=== PATIENT | male | born 1970 | race Hispanic/Latino ===

== ENCOUNTER 2018-07-07 07:55 | Outpatient (CLI) | payer BC ==
--- NOTE | 2018-07-07 08:33 | CT ---
CT abdomen and pelvis with IV contrast. Oral contrast was administered. INDICATIONS: Rectal pain. Blood in stool. Abdominal pain with nausea. COMPARISON: 11/13/2015 FINDINGS: Lung bases are clear Liver, spleen, and pancreas appear unremarkable. Stomach and duodenum appear unremarkable. Adrenal glands appear normal. Kidneys appear unremarkable. Collecting structures and urinary bladder appear unremarkable. Small bowel loops are normal caliber and exhibit normal fold pattern. Patient is status post appendectomy Colon is unremarkable. Rectum is abnormal. There is mural thickening. There is an air-fluid collection in the rectal wall to the left of midline measuring up to 3 cm AP dimension consistent with perirectal abscess. Aorta is normal caliber. Nonspecific para-aortic lymph nodes. Pelvic structures appear unremarkable. Subcutaneous tissues, abdominal wall, and muscular structures appear unremarkable. Osseous structures appear unremarkable. IMPRESSION: Inflammatory changes involving the rectum with mural thickening and evidence of perirectal abscess on the left.
== END 2018-07-07 07:56 | disposition home or self-care (01) ==
LOC: CT 07:55
PROVIDERS: ATTEND Family Medicine
DX: K62.89 Other specified diseases of anus and rectum (principal); R19.4 Change in bowel habit; R19.5 Other fecal abnormalities; K61.1 Rectal abscess
CPT/HCPCS: 74177

== ENCOUNTER 2018-07-22 05:52 | Day surgery (SDC) | payer BC ==
[2018-07-21 10:35] VITALS: BMI 29.2
[2018-07-22] MEDS ORDERED: Fentanyl 100 MCG/2 ML VIAL ONE ×2 (06:40→09:32)
[2018-07-22] MEDS ORDERED: Lidocaine 2% PF 5 ML VIAL ONE (06:46)
[2018-07-22] MEDS ORDERED: Bupivacaine/Epinephrine 0.25% 30 ML VIAL ONE (06:46)
[2018-07-22] MEDS ORDERED: PROPOFOL 20 ML ONE (07:52)
[2018-07-22] MEDS ORDERED: Propofol 500 MG/50 ML VIAL ONE (07:52)
--- NOTE | 2018-07-22 08:53 | RAD ---
Chest AP view INDICATION: Postop COMPARISON: [id number] FINDINGS: Lungs:There is suspected area of subsegmental volume loss within the left midlung and left lower lobe . Cardiac silhouette pulmonary vasculature:The cardiomediastinal silhouette appears within normal limit s. Pleural spaces:No pleural effusion or pneumothorax is demonstrated. Upper abdomen:No abnormality seen. Osseous structures: No acute osseous abnormality. Additional findings:There is a new right IJ chest wall port. IMPRESSION: New right IJ chest wall port without evidence of pneumothorax. Subsegmental volume loss w ithin the left midlung and left lower lobe.
[2018-07-22] MEDS ORDERED: HYDROcodone/Acetaminophen 5/325 mg Tablet ONE (10:30)
[2018-07-22] MEDS ORDERED: Dexamethasone 20 MG/5 ML VIAL ONE (15:17)
[2018-07-22] MEDS ORDERED: Lidocaine 1% PF 5 ML VIAL ONE (15:17)
[2018-07-22] MEDS ORDERED: PROPOFOL 200 MG/20 ML VIAL ONE (15:17)
[2018-07-22] MEDS ORDERED: Ondansetron PF 4 MG/2 ML Vial ONE (15:17)
--- NOTE | 2018-07-23 15:06 | OP ---
DATE OF PROCEDURE: 07/22/2018 PREOPERATIVE DIAGNOSIS: Rectal mass, likely malignancy. POSTOPERATIVE DIAGNOSIS: Rectal mass, likely malignancy. PROCEDURES PERFORMED: 1. Biopsy of rectal mass, transanal approach. 2. Tunnelled central line with subcutaneous port (MediPort CT injectable). ANESTHESIA: General. ESTIMATED BLOOD LOSS: Minimal. COMPLICATIONS: None. SPECIMEN: Rectal mass biopsy. DESCRIPTION OF PROCEDURE: The patient was taken to the operating room and laid supine on the operating room table. After general anesthetic was obtained, bilateral neck and chest was shaved, prepped, and draped in a sterile fashion. Local anesthetic infiltrated over the right internal jugular vein. Internal jugular vein was cannulated using a 22-gauge finder needle followed by a Seldinger needle. Wire was passed into superior vena cava under fluoro guidance. A 3 cm incision was made below the right clavicle and a subcutaneous pocket was made below the lower incision. Tubing for the MediPort tunnelled from the inferior to the superior incision and suture sheath was placed over the wire into the superior vena cava under fluoro guidance. The dilator and wire were removed and the catheter sewed into the sheath. The sheath was peeled away. The tip of the catheter was at the atriocaval junction. MediPort tubing cut to fit the MediPort with lower incision, connected to the MediPort, sewn to the chest wall in the subcutaneous pocket using Prolene. The MediPort flushes and draws blood without difficulty. It was flushed with a heparin flush. The wounds were all irrigated and closed using 3-0 Vicryl, 4-0 Monocryl, and Dermabond. Next, the patient was placed in lithotomy position and his perianal area was prepped and draped and using finger palpation of this mid rectal mass, biopsy was performed using a grasping device. Large piece of the mass was taken. There was no significant bleeding. The anal vault was packed using Gelfoam. The patient was sent to Recovery in stable condition. All instrument counts, needle counts, lap counts were correct. Job ID: [id number]
== END 2018-07-22 11:15 | disposition home or self-care (01) ==
LOC: SDC 05:52
PROVIDERS: ATTEND Surgery
PROC: 05HM33Z Insertion of Infusion Device into Right Internal Jugular Vein, Percutaneous Approach (ICD-10-PCS; principal; 2018-07-22)
PROC: 0DBP7ZX Excision of Rectum, Via Natural or Artificial Opening, Diagnostic (ICD-10-PCS; principal; 2018-07-22)
DX: C20 Malignant neoplasm of rectum (principal); G43.909 Migraine, unspecified, not intractable, without status migrainosus; Z90.89 Acquired absence of other organs; Z79.899 Other long term (current) drug therapy
CPT/HCPCS: 71045; 88305; C1788; J0690; J1100; J1642; J2001; J2405; J2704; J3010

== ENCOUNTER 2018-08-03 09:20 | Outpatient (CLI) | payer BC ==
--- NOTE | 2018-08-03 12:02 | MRI ---
MRI Pelvis W WO Con History: Rectal cancer Comparison: None. Findings: 7 cm from the anal verge is a circumferential necrotic mass rectum with central necrosis. T he mass abuts the internal sphincter without definite invasion. Mass invades through the submucosa, muscularis propria, and perirectal tissue. There is penetration into the right pelvic sidewall throug h the mesorectal fascia from 7:00-9:00. Mass has a craniocaudal length of 7.5 cm. Multiple abnormal presacral lymph nodes measuring up to 1 cm in short axis. Abnormal lymphovascular e nhancement posteriorly within the mesorectal fascia. No definite bladder wall invasion or prostate invasion. The urinary bladder is unremarkable. No external iliac adenopathy. No penetration within the peritoneal reflection. Impression: 1. T4a rectal cancer 7 cm from the anal verge which is circumferential with central necrosis. There a re numerous lymph nodes within the mesorectal fascia as well as the presacral orquidea chain. Mass extends through the serosa into the right pelvic sidewall. Mass abuts but does not clearly not invade the internal sphincter. 2. Positive posterior lymphovascular invasion. 3. No evidence for osseous metastasis. 4. Mesorectal fascial and superior rectal orquidea chain metastasis.
== END 2018-08-03 09:21 | disposition home or self-care (01) ==
LOC: TBSIIMAG 09:20
PROVIDERS: ATTEND Radiology Radiation Oncology
DX: C20 Malignant neoplasm of rectum (principal)
CPT/HCPCS: 72197

== ENCOUNTER 2018-11-08 07:54 | Outpatient (CLI) | payer BC ==
[2018-11-08 10:43] LABS: #Lymphocytes 0.8 thou/uL (1.20-3.40); #Monocytes 0.4 thou/uL (0.11-0.59); #Neutrophils 2.5 thou/uL (1.40-6.50); %Basophils 0.3 % (0.0-1.0); %Eosinophils 1.3 % (0.0-10.0); %Lymphocytes 21.4 % (21.0-51.0); %Monocytes 9.6 % (0.0-10.0); %Neutrophils 67.4 % (42.0-75.0); Hemoglobin 13.1 g/dL (14.0-18.0); Mean Corpuscular HGB CONC 34.5 g/dL (32.0-36.0); Mean Corpuscular Hemoglobin 29.7 pg (27.0-31.0); Mean Corpuscular Volume 86.1 fL (78.0-98.0); Mean Platelet Volume 7.7 fL (7.4-10.4); Platelet Count 261 thou/uL (130-400); RBC Distribution Width 14.8 % (11.5-14.5); White Blood Cell (WBC) Count 3.7 thou/uL (4.8-10.8)
[2018-11-08 10:51] LABS: Hemoglobin A1c 5.5 % (4.0-6.0)
[2018-11-08 11:08] LABS: ALT (SGPT) 15 U/L (8-55); AST (SGOT) 14 U/L (5-34); Albumin 4.2 g/dL (3.5-5.0); Alkaline Phosphatase 79 U/L (40-150); Anion Gap 12 mmol/L (10-20); BUN (Urea Nitrogen) 14 mg/dL (8.9-20.6); Bilirubin, Total 0.3 mg/dL (0.2-1.2); Calc. Creatinine Clearance 0 mL/min (70-130); Calcium 8.9 mg/dL (7.8-10.44); Carbon Dioxide 23 mmol/L (22-29); Chloride 104 mmol/L (98-107); Estimated GFR-MDRD Greater than 90; Globulin 3.4 g/dL (2.4-3.5); Glucose 100 mg/dL (70-105); Potassium 3.9 mmol/L (3.5-5.1); Protein, Total 7.6 g/dL (6.0-8.3); Sodium 135 mmol/L (136-145)
== END 2018-11-08 07:55 | disposition home or self-care (01) ==
LOC: LABBT 07:54
PROVIDERS: ATTEND Surgery
DX: Z01.812 Encounter for preprocedural laboratory examination (principal); C20 Malignant neoplasm of rectum
CPT/HCPCS: 80053; 83036; 85025

== ENCOUNTER 2018-11-08 08:45 | Inpatient (IN) | payer BC ==
[2018-11-11] MEDS: Acetaminophen 1,000 MG in Premix Bag 1 BAG IVPB SCH ×2 (00:50→17:50)
[2018-11-11] MEDS ORDERED: Fentanyl 100 MCG/2 ML VIAL ONE ×5 (06:28→13:23)
[2018-11-11] MEDS ORDERED: Midazolam HCl 2 mg/2 ml Vial ONE (06:28)
[2018-11-11] MEDS ORDERED: Sodium Chloride 0.9% 100 ML ONE (06:37)
[2018-11-11] MEDS ORDERED: cefOXitin 2 GM VIAL ONE ×3 (06:37→11:37)
[2018-11-11] MEDS ORDERED: Ondansetron HCl/PF 4 MG/2 ML Vial IVP PRN (06:58)
[2018-11-11] MEDS ORDERED: Promethazine HCl 25 MG/ML VIAL SLOW IVP PRN (06:58)
[2018-11-11] MEDS ORDERED: Promethazine HCl 25 MG/ML VIAL IM PRN (06:58)
[2018-11-11] MEDS ORDERED: Succinylcholine Chloride 20 MG/ML 10 ml SYRINGE FS ONE (09:38)
[2018-11-11] MEDS ORDERED: Rocuronium Bromide 50 MG/5 ML VIAL ONE (09:40)
[2018-11-11] MEDS ORDERED: Bupivacaine HCl 0.5%/Epinephrine 1:200,000/PF 30 ml Vial ONE (11:14)
[2018-11-11] MEDS ORDERED: Dexamethasone 20 MG/5 ML VIAL ONE (12:17)
[2018-11-11] MEDS ORDERED: Ketorolac Tromethamine 30 MG/ML VIAL ONE (12:17)
[2018-11-11] MEDS ORDERED: Glycopyrrolate 0.2 MG/ML 5 ML SYRINGE ONE (12:17)
[2018-11-11] MEDS ORDERED: PROPOFOL 200 MG/20 ML VIAL ONE (12:17)
[2018-11-11] MEDS ORDERED: Rocuronium Bromide 10 MG/ML (10ML VIAL) ONE (12:17)
[2018-11-11] MEDS ORDERED: Ondansetron PF 4 MG/2 ML Vial ONE (12:17)
[2018-11-11] MEDS ORDERED: hydrALAZINE 20 MG/ML VIAL SLOW IVP PRN (13:38)
[2018-11-11] MEDS ORDERED: Fentanyl 100 MCG/2 ML VIAL SLOW IVP PRN (13:38)
[2018-11-11] MEDS: D5 1/2 NS w/20 mEq KCL 1,000 ML IV SCH ×2 (14:18→20:31)
[2018-11-11] MEDS: Ketorolac Tromethamine 30 MG/ML VIAL IVP PRN ×2 (14:18→20:26)
[2018-11-11] MEDS: Ondansetron PF 4 MG/2 ML Vial IVP PRN (16:46)
[2018-11-11] MEDS: cefOXitin 2 GM in Sodium Chloride 0.9% 100 ML IVPB SCH (20:00)
[2018-11-11] MEDS: Famotidine/PF 20 mg/2ml Vial SLOW IVP SCH (20:26)
[2018-11-11] MEDS: Famotidine 20 MG TAB PO SCH (20:31)
[2018-11-12] MEDS: Ketorolac Tromethamine 30 MG/ML VIAL IVP PRN ×4 (03:27→23:21)
[2018-11-12] MEDS: cefOXitin 2 GM in Sodium Chloride 0.9% 100 ML IVPB SCH (03:27)
[2018-11-12] MEDS: Acetaminophen 1,000 MG in Premix Bag 1 BAG IVPB SCH ×2 (05:38→12:47)
[2018-11-12 05:48] LABS: #Lymphocytes 0.7 thou/uL (1.20-3.40); #Monocytes 0.6 thou/uL (0.11-0.59); #Neutrophils 4.1 thou/uL (1.40-6.50); %Basophils 0.1 % (0.0-1.0); %Eosinophils 0.1 % (0.0-10.0); %Lymphocytes 13.7 % (21.0-51.0); %Monocytes 10.3 % (0.0-10.0); %Neutrophils 75.8 % (42.0-75.0); Mean Corpuscular HGB CONC 34.3 g/dL (32.0-36.0); Mean Corpuscular Hemoglobin 30.1 pg (27.0-31.0); Mean Corpuscular Volume 87.8 fL (78.0-98.0); Mean Platelet Volume 7.4 fL (7.4-10.4); Platelet Count 243 thou/uL (130-400); RBC Distribution Width 14.2 % (11.5-14.5); Red Blood Cell (RBC) Count 3.65 mill/uL (4.70-6.10); White Blood Cell (WBC) Count 5.4 thou/uL (4.8-10.8)
[2018-11-12 06:00] LABS: Anion Gap 9 mmol/L (10-20); BUN (Urea Nitrogen) 10 mg/dL (8.9-20.6); Calc. Creatinine Clearance 127 mL/min (70-130); Carbon Dioxide 24 mmol/L (22-29); Chloride 105 mmol/L (98-107); Estimated GFR-MDRD Greater than 90; Glucose 105 mg/dL (70-105); Potassium 3.5 mmol/L (3.5-5.1); Sodium 134 mmol/L (136-145)
--- NOTE | 2018-11-12 06:51 | PDOC.GSPN ---
Surgery Progress Note: Subj - Subjective Patient reports: no new complaints, feels better, pain well controlled (pt states pain is 7/10, decreasing to 6/10 with IV tylenol and Ketorolac. the pain is mostly soreness around the sites of incision, and pt states comfortability with the current level of control.), tolerating liquids well (Has tolerated jello and clear broth well. Feels hungry and ready to advance diet.), voiding w/ o difficulty (Mojica present), nausea (3x yesterday evening- none overnight or today.), vomiting (1x yesterday evening after ambulating. None last night or today.) Narrative: Pt is s/p low anterior resection with diverting ileostomy post op day 1. Pt endorses uncomfortability yesterday evening, feeling overheated and sweaty in the room. However, overnight he did well, and has no new complaints this morning. He ambulated yesterday evening and will ambulate again this a.m. Surgery Progress Note: Obj - Vital signs Vital signs: Vital Signs - Most Recent Temp Pulse Resp BP Pulse Ox 98.5 F 79 18 109/65 97 11/12/18 03:41 11/12/18 03:41 11/12/18 03:41 11/12/18 03:41 11/12/18 03:41 - Physical Exam General: no distress, well developed, well nourished Cardiovascular: regular rate and rhythm Respiratory: clear to auscultation, normal expansion, normal respiratory effort , breath sounds present Abdomen: soft, nondistended, positive bowel sounds, appropriately tender Psychiatric: oriented to time, oriented to person, oriented to place Wound: dressing clean,dry,intact, healing well, ostomy/colostomy (Fecal matter present in ileostomy bag) Surgery Progress Note: Results - Labs Result Diagrams: 11/12/18 04:55 11/12/18 04:55 Lab results: Laboratory Results - last 24 hr 11/12/18 11/12/18 04:55 04:55 WBC 5.4 RBC 3.65 L Hgb 11.0 L Hct 32.0 L MCV 87.8 MCH 30.1 MCHC 34.3 RDW 14.2 Plt Count 243 MPV 7.4 Neutrophils % 75.8 H Lymphocytes % 13.7 L Monocytes % 10.3 H Eosinophils % 0.1 Basophils % 0.1 Neutrophils # 4.1 Lymphocytes # 0.7 L Monocytes # 0.6 H Eosinophils # 0.0 Basophils # 0.0 Sodium 134 L Potassium 3.5 Chloride 105 Carbon Dioxide 24 Anion Gap 9 L BUN 10 Creatinine 0.87 Estimated GFR (MDRD) Greater than 90 Glucose 105 Calcium 8.0 Surgery Progress Note: A/P - Problem (1) Rectal cancer Current Visit: Yes Code(s): C20 - MALIGNANT NEOPLASM OF RECTUM Status: Acute - Plan Plan: Pt did well overnight. Remained afebrile with nl WBC ct. Appears well his a.m. and tolerating clear liquid diet. Plata is 6/10 and pt states that is adequate control for him. No new complaints. Plan: -Advance to full liquid diet today -Consider mojica removal in next 24 hours -OOB/Ambulate as much as tolerated Addendum - Physician - Physician Attestation Date/Time: 11/12/18 [id number] I personally performed or re-performed the physical examination and medical decision making. I have verified all student documentation or findings, including history, physical exam and/or medical decision making. Doing well. Advance to full liquids
[2018-11-12] MEDS: Famotidine/PF 20 mg/2ml Vial SLOW IVP SCH ×2 (07:55→20:56)
[2018-11-12] MEDS: Famotidine 20 MG TAB PO SCH ×2 (09:37→20:56)
[2018-11-12] MEDS ORDERED: D5 1/2 NS w/20 mEq KCL 1,000 ML IV SCH (11:33)
[2018-11-12] MEDS ORDERED: traMADol HCl 50 MG TAB PO PRN (11:33)
[2018-11-12] MEDS: Enoxaparin Sodium 40 MG/0.4 ML SYRINGE SC SCH (20:56)
[2018-11-13] MEDS: Fentanyl 100 MCG/2 ML VIAL SLOW IVP PRN ×2 (01:45→08:25)
[2018-11-13] MEDS: Ondansetron PF 4 MG/2 ML Vial IVP PRN ×3 (04:28→19:12)
[2018-11-13] MEDS: Ketorolac Tromethamine 30 MG/ML VIAL IVP PRN ×3 (05:45→22:49)
[2018-11-13] MEDS: Famotidine/PF 20 mg/2ml Vial SLOW IVP SCH ×2 (08:18→21:05)
[2018-11-13] MEDS: Promethazine HCl 25 MG/ML VIAL IM PRN (08:19)
[2018-11-13] MEDS: Famotidine 20 MG TAB PO SCH ×2 (08:34→22:21)
--- NOTE | 2018-11-13 10:38 | PRG ---
DATE OF SERVICE: 11/13/2018 SUBJECTIVE: Mr. Yeung feels more bloated today. He is having more nausea. Last night, he vomited, but his nausea kept him up. This morning, the nausea is improved, although he is very tired. He has been ambulatory, although not so much today. His catheter was removed this morning, he is due to void. OBJECTIVE: VITAL SIGNS: Pulse 72, blood pressure 129/81. He is afebrile. ABDOMEN: Soft and appropriately tender. It is distended. The incisions are healing well. LABORATORY DATA: No new labs today. ASSESSMENT: Postop day two, low anterior with low pelvic anastomosis. PLAN: Still stay on liquid diet as tolerated. Recheck labs in the morning. Await for this expected postoperative ileus to resolve. Urine in and out cath pleah Job ID: [id number]
[2018-11-13] MEDS: D5 1/2 NS w/20 mEq KCL 1,000 ML IV SCH (11:28)
[2018-11-13] MEDS: Enoxaparin Sodium 40 MG/0.4 ML SYRINGE SC SCH (21:05)
[2018-11-14] MEDS: D5 1/2 NS w/20 mEq KCL 1,000 ML IV SCH ×2 (00:33→14:19)
[2018-11-14 03:52] LABS: #Lymphocytes 0.7 thou/uL (1.20-3.40); #Monocytes 0.4 thou/uL (0.11-0.59); #Neutrophils 5.1 thou/uL (1.40-6.50); %Basophils 0.2 % (0.0-1.0); %Eosinophils 0.7 % (0.0-10.0); %Lymphocytes 10.8 % (21.0-51.0); %Monocytes 6.1 % (0.0-10.0); %Neutrophils 82.3 % (42.0-75.0); Mean Corpuscular HGB CONC 33.9 g/dL (32.0-36.0); Mean Corpuscular Volume 88.5 fL (78.0-98.0); Mean Platelet Volume 7.4 fL (7.4-10.4); Platelet Count 268 thou/uL (130-400); RBC Distribution Width 14.2 % (11.5-14.5); Red Blood Cell (RBC) Count 4.34 mill/uL (4.70-6.10); White Blood Cell (WBC) Count 6.2 thou/uL (4.8-10.8)
[2018-11-14 04:09] LABS: Anion Gap 13 mmol/L (10-20); BUN (Urea Nitrogen) 11 mg/dL (8.9-20.6); Calc. Creatinine Clearance 122 mL/min (70-130); Calcium 9.2 mg/dL (7.8-10.44); Carbon Dioxide 20 mmol/L (22-29); Chloride 105 mmol/L (98-107); Estimated GFR-MDRD 89; Glucose 129 mg/dL (70-105); Sodium 134 mmol/L (136-145)
[2018-11-14] MEDS: Ketorolac Tromethamine 30 MG/ML VIAL IVP PRN ×3 (06:29→18:07)
[2018-11-14] MEDS: Famotidine/PF 20 mg/2ml Vial SLOW IVP SCH ×2 (09:31→20:53)
[2018-11-14] MEDS: Famotidine 20 MG TAB PO SCH ×2 (09:32→20:54)
[2018-11-14] MEDS: Ondansetron PF 4 MG/2 ML Vial IVP PRN ×2 (09:49→18:07)
--- NOTE | 2018-11-14 10:06 | PRG ---
DATE OF SERVICE: 11/14/2018 SUBJECTIVE: Mr. Noland did have vomiting again last night. He feels bloated. He has really been pushing the oral fluids. He is ambulatory. His pain is well controlled. OBJECTIVE: VITAL SIGNS: His pulse is 93, respirations 20. He is afebrile. Urine output, he has been in and out cath a few times, total urine output is 450. ABDOMEN: His abdomen is distended with occasional bowel sounds. Ostomy site, there is swelling of the mucosa. No significant air or stool in the bag. His wounds are healing well. LABORATORY DATA: While blood cell count is 6, hemoglobin 13. Creatinine is 0.91. ASSESSMENT: Postop low anterior resection with prolonged expected ileus. PLAN: 1. Continue clear liquids as tolerated. 2. Difficulty voiding, likely just needs the catheter replaced for now. Job ID: [id number]
[2018-11-14] MEDS: Enoxaparin Sodium 40 MG/0.4 ML SYRINGE SC SCH (20:53)
[2018-11-14] MEDS: Acetaminophen 1,000 MG in Premix Bag 1 BAG IVPB PRN (22:31)
[2018-11-15] MEDS: Promethazine HCl 25 MG/ML VIAL IM PRN (03:05)
[2018-11-15] MEDS: D5 1/2 NS w/20 mEq KCL 1,000 ML IV SCH ×3 (03:10→20:57)
[2018-11-15 05:24] LABS: #Lymphocytes 0.3 thou/uL (1.20-3.40); #Monocytes 0.4 thou/uL (0.11-0.59); #Neutrophils 2.1 thou/uL (1.40-6.50); %Basophils 0.3 % (0.0-1.0); %Eosinophils 1.4 % (0.0-10.0); %Lymphocytes 8.8 % (21.0-51.0); %Monocytes 13.1 % (0.0-10.0); %Neutrophils 76.4 % (42.0-75.0); Hemoglobin 12.8 g/dL (14.0-18.0); Mean Corpuscular HGB CONC 34.7 g/dL (32.0-36.0); Mean Corpuscular Hemoglobin 30.5 pg (27.0-31.0); Mean Corpuscular Volume 87.9 fL (78.0-98.0); Mean Platelet Volume 7.4 fL (7.4-10.4); Platelet Count 277 thou/uL (130-400); RBC Distribution Width 14.1 % (11.5-14.5); Red Blood Cell (RBC) Count 4.21 mill/uL (4.70-6.10); White Blood Cell (WBC) Count 2.8 thou/uL (4.8-10.8)
[2018-11-15 05:25] LABS: Anion Gap 13 mmol/L (10-20); BUN (Urea Nitrogen) 18 mg/dL (8.9-20.6); Calc. Creatinine Clearance 118 mL/min (70-130); Calcium 9.1 mg/dL (7.8-10.44); Carbon Dioxide 23 mmol/L (22-29); Chloride 102 mmol/L (98-107); Estimated GFR-MDRD 85; Glucose 131 mg/dL (70-105); Potassium 4.2 mmol/L (3.5-5.1); Sodium 134 mmol/L (136-145)
[2018-11-15] MEDS: Famotidine/PF 20 mg/2ml Vial SLOW IVP SCH ×2 (08:40→20:58)
[2018-11-15] MEDS: Famotidine 20 MG TAB PO SCH ×2 (08:40→20:59)
--- NOTE | 2018-11-15 08:50 | RAD ---
ABDOMEN 2 VIEWS: HISTORY: Nausea, vomiting, NG tube placement. FINDINGS: An NG tube is in place in satisfactory location within the stomach. There are abnormally dilated loo ps of small bowel with air fluid levels. Right-sided ostomy site. Postsurgical changes in the regio n of the rectum. IMPRESSION: Abnormally dilated small bowel with air fluid levels concerning for obstruction. Nasogastric tube pl acement in satisfactory location. No free intraperitoneal air. Other findings as above. POS: OFF
[2018-11-15] MEDS ORDERED: Sodium Chloride 0.9% 1,000 ML IV SCH ×2 (09:30)
[2018-11-15] MEDS: Acetaminophen 1,000 MG in Premix Bag 1 BAG IVPB PRN ×2 (10:30→18:38)
--- NOTE | 2018-11-15 12:46 | PDOC.GSPN ---
Surgery Progress Note: Subj - Subjective Narrative: Vomitted overnight. NG placed this morning. He was having upper abdominal pain that is improved now after NG placement. KUB shows dilated small bowel. Surgery Progress Note: Obj - Vital signs Vital signs: Vital Signs - Most Recent Temp Pulse Resp BP Pulse Ox 99.0 F 99 16 118/76 97 11/15/18 11:01 11/15/18 11:01 11/15/18 11:01 11/15/18 11:01 11/15/18 11:01 - Physical Exam General: no distress Cardiovascular: regular rate and rhythm Respiratory: clear to auscultation Abdomen: soft, appropriately tender, distended Wound: healing well, ostomy/colostomy (No stool in bag. Ostomy is viable) Surgery Progress Note: Results - Labs Result Diagrams: 11/15/18 03:56 11/15/18 03:56 Lab results: Laboratory Results - last 24 hr 11/15/18 11/15/18 03:56 03:56 WBC 2.8 L RBC 4.21 L Hgb 12.8 L Hct 37.0 L MCV 87.9 MCH 30.5 MCHC 34.7 RDW 14.1 Plt Count 277 MPV 7.4 Neutrophils % 76.4 H Lymphocytes % 8.8 L Monocytes % 13.1 H Eosinophils % 1.4 Basophils % 0.3 Neutrophils # 2.1 Lymphocytes # 0.3 L Monocytes # 0.4 Eosinophils # 0.0 Basophils # 0.0 Sodium 134 L Potassium 4.2 Chloride 102 Carbon Dioxide 23 Anion Gap 13 BUN 18 Creatinine 0.94 Estimated GFR (MDRD) 85 Glucose 131 H Calcium 9.1 Surgery Progress Note: A/P - Problem (1) Rectal cancer Current Visit: Yes Code(s): C20 - MALIGNANT NEOPLASM OF RECTUM Status: Acute - Plan Plan: POD #4 LAR for rectal cancer s/p neoadjuvant chemo/xrt -Recurrent ileus, KUB's show dilated small bowel- NG, NPO -Hgb stable -Final path pending -CT of the abdomen tomorrow if not markedly improved.
[2018-11-15] MEDS: Meropenem 2 GM in Sodium Chloride 0.9% 100 ML IVPB SCH ×2 (14:37→21:02)
[2018-11-15] MEDS ORDERED: Chloraseptic Spray 180 ml Bottle PO PRN (15:14)
[2018-11-15] MEDS: Enoxaparin Sodium 40 MG/0.4 ML SYRINGE SC SCH (20:58)
[2018-11-16] MEDS: Acetaminophen 1,000 MG in Premix Bag 1 BAG IVPB PRN ×3 (01:01→19:51)
[2018-11-16 04:32] LABS: Anion Gap 14 mmol/L (10-20); BUN (Urea Nitrogen) 20 mg/dL (8.9-20.6); Calc. Creatinine Clearance 126 mL/min (70-130); Calcium 9.2 mg/dL (7.8-10.44); Carbon Dioxide 23 mmol/L (22-29); Chloride 102 mmol/L (98-107); Estimated GFR-MDRD Greater than 90; Glucose 141 mg/dL (70-105); Potassium 3.9 mmol/L (3.5-5.1); Sodium 135 mmol/L (136-145)
[2018-11-16] MEDS: D5 1/2 NS w/20 mEq KCL 1,000 ML IV SCH ×3 (04:45→19:55)
[2018-11-16 05:02] LABS: Band 44 % (5-11); Eosinophils 2 % (0-10); Hemoglobin 12.7 g/dL (14.0-18.0); Lymphocytes 11 % (21-51); MDiff Complete? YES; Mean Corpuscular Hemoglobin 29.9 pg (27.0-31.0); Mean Corpuscular Volume 87.8 fL (78.0-98.0); Mean Platelet Volume 7.1 fL (7.4-10.4); Monocytes 13 % (0-10); Neutrophil 30 % (42-75); Platelet Count 321 thou/uL (130-400); Platelet Morphology Comment Appears Adequate; RBC Distribution Width 13.9 % (11.5-14.5); Red Blood Cell (RBC) Count 4.26 mill/uL (4.70-6.10); Reflex for Review?? YES; White Blood Cell (WBC) Count 3.3 thou/uL (4.8-10.8)
[2018-11-16] MEDS: Meropenem 2 GM in Sodium Chloride 0.9% 100 ML IVPB SCH ×3 (05:24→21:39)
[2018-11-16] MEDS ORDERED: Sodium Chloride 0.9% 1,000 ML IV SCH (07:45)
[2018-11-16] MEDS: Famotidine/PF 20 mg/2ml Vial SLOW IVP SCH ×2 (08:24→20:00)
[2018-11-16] MEDS: Famotidine 20 MG TAB PO SCH ×2 (08:25→20:03)
[2018-11-16] MEDS ORDERED: Iopamidol 370 76% 50 ML VIAL FS ONE (08:59)
[2018-11-16] MEDS ORDERED: Iopamidol 370 76% 100 ML VIAL ONE (08:59)
--- NOTE | 2018-11-16 09:00 | PRG ---
DATE OF SERVICE: 11/16/2018 SUBJECTIVE: Mr. Noland is not feeling well. His NG output was high overnight. He complains of mild diffuse abdominal pain, not severe. The NG tube is really bothering his throat. He continues to hiccup at times. OBJECTIVE: VITAL SIGNS: His pulse is 108, blood pressure is 116/79, respirations 18, and he is afebrile. NG tube output since placement yesterday was 4550. Urine output for the day was 975. ABDOMEN: Distended. There is diffuse occasional bowel sounds. His wounds are healing well. Examination of the ostomy reveals pink mucosa. The top of the device is removed and a finger is able to be passed into the intraabdominal cavity through the fascial defect above both the afferent and efferent limbs. There is stool in the bag. LABORATORY DATA: White blood cell count is 3, hemoglobin 12, and platelet count is 321. He does have 44 bands today. Sodium 135, potassium 3.9, creatinine 0.88, glucose is 141. ASSESSMENT: Postoperative day 5, low anterior with low pelvic anastomosis, diverting loop ileostomy for distal rectal cancer, treated with neoadjuvant chemoradiation. PLAN: We will obtain CT of the abdomen and pelvis today. His urine remains dark and there is a lot of pink sediment in the tubing. We will also get a CT cystogram. His pathology shows treatment effect presents and only a small residual adenocarcinoma with 0 of 21 lymph nodes positive. Job ID: [id number]
--- NOTE | 2018-11-16 12:59 | CT ---
CT Abdomen Pelvis W Con: 11/16/2018 7:32 AM CLINICAL INFORMATION: Status post recent low anterior resection with abdominal distention COMPARISON: 07/07/2018 TECHNIQUE: Multiple contiguous axial images were obtained and a CT of the abdomen and pelvis with IV contrast. A delayed scan was performed with contrast instilled in the urinary bladder for a CT cystogram. Coronal and sagittal reformats were performed. FINDINGS: Lower Chest: within normal limits. Abdomen: Liver: within normal limits. Bile Ducts: Normal caliber. Gallbladder: No calcified gallstones. Normal caliber wall. Pancreas: within normal limits. Spleen: within normal limits. Adrenals: within normal limits. Kidneys: within normal limits. Pelvis: Reproductive Organs: No pelvic masses. Ureters: within normal limits. Bladder: A Ibanez catheter is seen in the urinary bladder. No leakage of the cystogram contrast is see n on the latter images. Peritoneum: A small amount of free fluid is seen in the pelvis. No free air is seen. Bowel: An anastomotic staple line is seen in the pelvis. A diverting loop ileostomy is seen in the ri t lower quadrant of the abdomen. The small bowel loops are distended measuring up to 4.6 cm in size. These distended loops extend to the patient's ostomy and the small bowel loops distal to the os christopher are decompressed. No obvious twisting within the ostomy is seen. The colon is also decompressed. An NG tube is seen in the stomach. Mesentery and Retroperitoneum: No enlarged mesenteric or retroperitoneal lymph nodes. Vessels: Normal. Abdominal Wall: within normal limits. Bones: Within normal limits IMPRESSION: Distended loops of small bowel may be secondary to ileus or bowel obstruction. Dr. Raines was presen t during the interpretation of this examination.
[2018-11-16] MEDS: Ondansetron PF 4 MG/2 ML Vial IVP PRN (16:34)
[2018-11-16] MEDS: Enoxaparin Sodium 40 MG/0.4 ML SYRINGE SC SCH (20:00)
[2018-11-17] MEDS: Acetaminophen 1,000 MG in Premix Bag 1 BAG IVPB PRN ×3 (01:50→14:07)
[2018-11-17] MEDS: D5 1/2 NS w/20 mEq KCL 1,000 ML IV SCH ×3 (04:23→22:43)
[2018-11-17 06:05] LABS: Anion Gap 16 mmol/L (10-20); BUN (Urea Nitrogen) 29 mg/dL (8.9-20.6); Calc. Creatinine Clearance 108 mL/min (70-130); Calcium 9.9 mg/dL (7.8-10.44); Carbon Dioxide 25 mmol/L (22-29); Chloride 96 mmol/L (98-107); Estimated GFR-MDRD 78; Glucose 139 mg/dL (70-105); Potassium 3.9 mmol/L (3.5-5.1); Sodium 133 mmol/L (136-145)
[2018-11-17 06:09] LABS: Band 17 % (5-11); Eosinophils 1 % (0-10); Hemoglobin 13.5 g/dL (14.0-18.0); Lymphocytes 14 % (21-51); MDiff Complete? YES; Mean Corpuscular HGB CONC 34.1 g/dL (32.0-36.0); Mean Corpuscular Hemoglobin 29.7 pg (27.0-31.0); Mean Corpuscular Volume 87.2 fL (78.0-98.0); Mean Platelet Volume 7.3 fL (7.4-10.4); Monocytes 6 % (0-10); Neutrophil 62 % (42-75); Platelet Count 394 thou/uL (130-400); Platelet Morphology Comment Appears Adequate; RBC Distribution Width 13.7 % (11.5-14.5); RBC Morphology Normal; Red Blood Cell (RBC) Count 4.55 mill/uL (4.70-6.10); White Blood Cell (WBC) Count 4.4 thou/uL (4.8-10.8)
[2018-11-17] MEDS: Meropenem 2 GM in Sodium Chloride 0.9% 100 ML IVPB SCH ×3 (06:31→22:43)
[2018-11-17] MEDS: Famotidine/PF 20 mg/2ml Vial SLOW IVP SCH ×2 (08:32→20:47)
[2018-11-17] MEDS: Famotidine 20 MG TAB PO SCH ×2 (08:33→21:13)
--- NOTE | 2018-11-17 11:18 | PDOC.GSPN ---
Surgery Progress Note: Subj - Subjective Patient reports: feels better (no nausea and he has been ambulating more) Surgery Progress Note: Obj - Vital signs Vital signs: Vital Signs - Most Recent Temp Pulse Resp BP Pulse Ox 97.8 F 84 18 120/81 97 11/17/18 04:00 11/17/18 04:00 11/17/18 04:00 11/17/18 04:00 11/17/18 08:39 - Physical Exam General: no distress Respiratory: clear to auscultation Abdomen: soft, appropriately tender, distended (improved with bowel sounds present now) Surgery Progress Note: Results - Labs Result Diagrams: 11/17/18 04:41 11/17/18 04:41 Lab results: Laboratory Results - last 24 hr 11/17/18 11/17/18 04:41 04:41 WBC 4.4 L RBC 4.55 L Hgb 13.5 L Hct 39.7 L MCV 87.2 MCH 29.7 MCHC 34.1 RDW 13.7 Plt Count 394 MPV 7.3 L Neutrophils % (Manual) 62 Band Neuts % (Manual) 17 H Lymphocytes % (Manual) 14 L Monocytes % (Manual) 6 Eosinophils % (Manual) 1 Plt Morphology Comment Appears Adequate RBC Morph Comment Normal Sodium 133 L Potassium 3.9 Chloride 96 L Carbon Dioxide 25 Anion Gap 16 BUN 29 H Creatinine 1.02 Estimated GFR (MDRD) 78 Glucose 139 H Calcium 9.9 - Radiology Interpretation CT scan - abdomen Additional comments: shows no abscess. There is dilation of small intestine all the way to ileostomy. There is no obvious twist of the intestine as it passes through the abdominal wall Surgery Progress Note: A/P - Problem (1) Rectal cancer Current Visit: Yes Code(s): C20 - MALIGNANT NEOPLASM OF RECTUM Status: Acute - Plan Plan: s/p LAR, low with ileostomy -given the extent of his ileus and high previous output I recommended one more day of NG. -Plan DC mojica in am. He had severe postop urinary retention. His mojica has moderate sediment present. CT cysto normal
--- NOTE | 2018-11-17 12:13 | OP ---
DATE OF PROCEDURE: 11/11/2018 PREOPERATIVE DIAGNOSIS: Locally invasive rectal cancer, mid rectum, status post neoadjuvant chemoradiation. POSTOPERATIVE DIAGNOSIS: Locally invasive rectal cancer, mid rectum, status post neoadjuvant chemoradiation. PROCEDURE PERFORMED: DaVinci robot laparoscopic low anterior resection with low pelvic anastomosis with diverting loop ileostomy. ANESTHESIA: General. ESTIMATED BLOOD LOSS: 300 mL. COMPLICATIONS: None. FINDINGS: The gross margin is at least 2 cm. Specimen was sent to pathology for gross margin. Final distal doughnut is going to be the final margin. SPECIMEN: Above. BRIEF HISTORY: The patient is a 48-year-old male who had a circumferential mid to low rectal mass, biopsy-proven adenocarcinoma. He has undergone preop chemoradiation. He was deemed a candidate for low anterior resection, but he also understood there was a risk of potential APR. He underwent mechanical and antibiotic bowel prep. DESCRIPTION OF PROCEDURE: The patient was taken to the operating room and laid supine on the operating room table. After general anesthetic was obtained, a Ibanez was placed. The patient was placed in lithotomy position. His abdomen and perineum were prepped and draped in a sterile fashion. Left subcostal 5 mm Optiview trocar was placed in usual fashion and high-flow pneumoperitoneum was obtained. The robot camera port was placed to the right of the umbilicus. A robot stapler port was placed in the right lower quadrant. The robot assist ports are placed, right subcostal, left subcostal, left lower quadrant. The robot was brought in on the left hip. All ports were docked to the robot. Surgeon goes to the console. The tissues at the base of the inferior mesenteric artery are skeletonized. The inferior mesenteric artery was taken near its base using the vessel sealer. Dissection medial to lateral through the sigmoid colon mesentery reveals the left ureter which was found and excluded from the dissection. Dissection was then taken down into the pelvis over the sacral promontory. The mesorectal plane was entered and mesorectal dissection was performed all the way to the muscles down distally. The lateral and anterior dissection were performed as well. There was significant radiation type changes and inflammatory change in the pelvis, this made this dissection meticulous and there was a lot of slow blood oozing during this portion of the procedure. A circumferential dissection of the rectum was performed just above the levator muscles. Surgeon went to the bedside to place his finger up the backside, which revealed the dissection to be just distal to the palpable mass. In this area, robot stapler was fired transversely across the lower third of the rectum. This was just above the levators. The stapler was tightened down and finger was placed in the rectum to reveal that it was not obviously across the mass. After the colon was stapled distally just above the levator muscles, the left lower quadrant port was removed and muscle-splitting incision was placed and Brian wound retractor was placed. The colon was brought up and out of the abdomen through here. The palpable abnormality is grossly above the staple line. Location for the proximal anvil placement was found. Colotomy was made just distal to this. The 31 EEA anvil was passed proximally with its tip brought down on the antimesenteric surface of the colon above. The colon was stapled off just distal to this. The specimen was opened on the back table to reveal the treated cancer ulcer to be above grossly the staple line. The specimen sent to pathology where grossly the pathologist reports there was no involvement of the staple line. The proximal colon with the anvil was dropped back down into the abdominal cavity, placed down into the pelvis under no tension. The EEA base was brought up through the anus. A sharp end brought down on the staple line from below. This was connected to the anvil from above and the stapler was tightened down and fired. The distal doughnut was sent as the final distal margin. There was no ongoing bleeding in the abdomen. There was no injury to any intraabdominal structures. The robot stapler port site was closed using GraNee needle 0 Vicryl tie. Ellipse of skin was taken out in the right lower quadrant and a cruciate incision was made in the fascia with the muscle-splitting incision and a loop of the distal ileum was brought up as the loop ileostomy. All port sites were removed. Pneumoperitoneum was let down. PDS was used to close the fascial defect of the left lower quadrant anterior and posteriorly. This wound was irrigated copiously using pulse irrigation and closed using 3-0 Vicryl, 4-0 Monocryl, and Dermabond. The rest of the abdominal incisions were closed using 3-0 Vicryl, 4-0 Monocryl and Dermabond and the ileostomy was then matured in the usual fashion using 3-0 Vicryl. An ostomy devices placed. The patient was sent to Recovery in stable condition. All instrument counts, needle counts, and lap counts were correct. Job ID: [id number]
[2018-11-17] MEDS: Ondansetron PF 4 MG/2 ML Vial IVP PRN (16:13)
[2018-11-17] MEDS ORDERED: Acetaminophen 1,000 MG in Premix Bag 1 BAG IVPB PRN (20:11)
[2018-11-17] MEDS ORDERED: Sodium Chloride 0.9% 1,000 ML IV SCH (20:15)
[2018-11-17] MEDS: Enoxaparin Sodium 40 MG/0.4 ML SYRINGE SC SCH (20:48)
[2018-11-18] MEDS: D5 1/2 NS w/20 mEq KCL 1,000 ML IV SCH ×3 (04:13→21:28)
[2018-11-18] MEDS: Meropenem 2 GM in Sodium Chloride 0.9% 100 ML IVPB SCH ×3 (06:55→21:25)
[2018-11-18] MEDS: Famotidine/PF 20 mg/2ml Vial SLOW IVP SCH ×2 (09:07→21:30)
[2018-11-18] MEDS: Famotidine 20 MG TAB PO SCH ×2 (09:08→21:28)
--- NOTE | 2018-11-18 09:23 | PDOC.GSPN ---
Surgery Progress Note: Subj - Subjective Narrative: No nausea, ostomy output still high Surgery Progress Note: Obj - Vital signs Vital signs: Vital Signs - Most Recent Temp Pulse Resp BP Pulse Ox 98.4 F 93 16 127/86 97 11/18/18 03:40 11/18/18 03:40 11/18/18 03:40 11/18/18 03:40 11/18/18 03:40 - Physical Exam General: no distress Cardiovascular: regular rate and rhythm Respiratory: clear to auscultation Abdomen: soft, nondistended, positive bowel sounds, appropriately tender Wound: healing well, ostomy/colostomy (viable, air/stool in bag) Surgery Progress Note: Results - Labs Result Diagrams: 11/17/18 04:41 11/17/18 04:41 - Radiology Interpretation CT scan - abdomen Additional comments: shows no abscess. There is dilation of small intestine all the way to ileostomy. There is no obvious twist of the intestine as it passes through the abdominal wall Surgery Progress Note: A/P - Problem (1) Rectal cancer Current Visit: Yes Code(s): C20 - MALIGNANT NEOPLASM OF RECTUM Status: Acute - Plan Plan: Ileus resolving -DC NG -DC Ibanez -try clears -I suspect he will need lomotil/immodium due to high output ileostomy
[2018-11-18] MEDS ORDERED: traMADol HCl 50 MG TAB PO PRN ×2 (19:17)
[2018-11-18] MEDS: Enoxaparin Sodium 40 MG/0.4 ML SYRINGE SC SCH (21:28)
[2018-11-19] MEDS: Meropenem 2 GM in Sodium Chloride 0.9% 100 ML IVPB SCH ×3 (05:32→21:26)
[2018-11-19] MEDS: D5 1/2 NS w/20 mEq KCL 1,000 ML IV SCH ×3 (05:32→21:27)
--- NOTE | 2018-11-19 07:44 | PRG ---
DATE OF SERVICE: 11/19/2018 SUBJECTIVE: Mr. Noland did well with the clear liquids. His ostomy output for the day was 1950. OBJECTIVE: ABDOMEN: Soft. He has occasional bowel sounds. He is nontender. Wounds are healing well. There is stool in the bag. ASSESSMENT: Resolving ileus and high-output ileostomy status post low anterior resection with loop ileostomy. PLAN: Start Lomotil. Advance to full liquid diet. Home tomorrow if doing well. Prescriptions for tramadol, Lomotil, Flomax and Zofran already sent to his pharmacy. Dr. Mcallister to see him for me tomorrow. Job ID: [id number]
[2018-11-19] MEDS ORDERED: Tamsulosin HCl 0.4 MG CAP PO SCH (09:00)
[2018-11-19] MEDS: Tamsulosin HCl 0.4 MG CAP PO SCH (09:08)
[2018-11-19] MEDS: Famotidine 20 MG TAB PO SCH ×2 (09:09→21:26)
[2018-11-19] MEDS: Diphenoxylate HCl/Atropine Tablet PO SCH ×2 (09:10→21:27)
[2018-11-19] MEDS: Famotidine/PF 20 mg/2ml Vial SLOW IVP SCH ×2 (13:20→21:28)
[2018-11-19 18:04] VITALS: BMI 29.9
[2018-11-19] MEDS: Enoxaparin Sodium 40 MG/0.4 ML SYRINGE SC SCH (21:26)
[2018-11-20 04:25] LABS: Anion Gap 12 mmol/L (10-20); BUN (Urea Nitrogen) 21 mg/dL (8.9-20.6); Calc. Creatinine Clearance 131 mL/min (70-130); Calcium 8.9 mg/dL (7.8-10.44); Carbon Dioxide 23 mmol/L (22-29); Chloride 98 mmol/L (98-107); Estimated GFR-MDRD Greater than 90; Glucose 141 mg/dL (70-105); Potassium 4.1 mmol/L (3.5-5.1); Sodium 129 mmol/L (136-145)
[2018-11-20] MEDS: Meropenem 2 GM in Sodium Chloride 0.9% 100 ML IVPB SCH ×3 (06:35→21:47)
[2018-11-20] MEDS: Diphenoxylate HCl/Atropine Tablet PO SCH (09:19)
[2018-11-20] MEDS: Famotidine 20 MG TAB PO SCH ×2 (09:20→21:48)
[2018-11-20] MEDS: D5 1/2 NS w/20 mEq KCL 1,000 ML IV SCH ×2 (09:20→18:03)
[2018-11-20] MEDS: Famotidine/PF 20 mg/2ml Vial SLOW IVP SCH (09:20)
[2018-11-20] MEDS: Tamsulosin HCl 0.4 MG CAP PO SCH (09:20)
[2018-11-20] MEDS ORDERED: Acetaminophen 500 MG TAB PO PRN (20:05)
--- NOTE | 2018-11-20 20:46 | PRG ---
DATE OF SERVICE: 11/20/2018 SUBJECTIVE: Mr. Noland is doing well today. He is still feeling some bloating. His ileostomy output is 1270 over the last 24 hours. He feels bloated because of the Imodium and has refused to take that today. He has been having ileostomy output and flatus. He is still on full liquids. OBJECTIVE: LUNGS: Clear to auscultation. CARDIAC: Regular rate and rhythm without murmur or gallop. ABDOMEN: Soft, mildly tympanitic. Diminished bowel sounds. Ileostomy healthy. ASSESSMENT AND PLAN: Doing well. Discontinue Imodium due to his GI function. Saline lock him. His electrolytes are fine. We will not check those tomorrow. Job ID: [id number]
[2018-11-20] MEDS: Enoxaparin Sodium 40 MG/0.4 ML SYRINGE SC SCH (21:48)
[2018-11-21] MEDS: Famotidine 20 MG TAB PO SCH ×2 (08:15→21:39)
[2018-11-21] MEDS: Tamsulosin HCl 0.4 MG CAP PO SCH (08:15)
--- NOTE | 2018-11-21 11:28 | RAD ---
Abdomen 2 views INDICATION: Postop bloating COMPARISON: CT the abdomen and pelvis with IV contrast dated November 16, 2018 FINDINGS: Bowel gas: There are dilated loops of small bowel within the upper and central abdomen with different ial air-fluid levels suspicious for mechanical obstruction. The degree of dilatation is similar to the comparison CT evaluation. There is a transition point at the right lower quadrant stomal site as the point of mechanical obstruction on the comparison CT. Lung bases: Clear. Additional findings: There is surgical suture line seen within the lower pelvis. Osseous structures: No acute osseous abnormality is demonstrated. IMPRESSION: 1. Persistent moderate to severe partial small bowel obstruction
[2018-11-21] MEDS ORDERED: Sodium Chloride 0.9% 1,000 ML IV SCH (14:15)
--- NOTE | 2018-11-21 14:54 | PRG ---
DATE OF SERVICE: 11/21/2018 SUBJECTIVE: Gamal Noland is doing well today. He is seen for Dr. Raines. The patient's IV went bad overnight. We discontinued it. We stopped his meropenem. He was complaining of some bloating and we stopped his Imodium. He states he is still having some bloating, but he feels so much better today. I did obtain abdominal x-rays today and he has multiple air-fluid levels, small dilatation consistent with either obstruction or ileus. The patient reports that he has dark urine. He is consuming liquids, but not a lot. He had Cream of Wheat this morning. OBJECTIVE: VITAL SIGNS: 98.6 degrees, 89, 114/76. LUNGS: Clear to auscultation. CARDIAC: Regular rate and rhythm without murmur or gallop. ABDOMEN: Soft, mildly distended, mildly tympanitic. LABORATORY DATA: No labs today ASSESSMENT AND PLAN: Ileus versus postoperative bowel obstruction. Continue supportive care. I would begin IV fluids today to continue hydration as he reports dark urine. He is not consuming that much specially in light of the radiological findings of air-fluid levels and distended small bowel. Ileostomy output is diminished, 340 in the last 24 hours. Intake liquids only, IV fluids. Await GI function. Hold Imodium. Job ID: [id number]
[2018-11-21] MEDS: Sodium Chloride 0.9% 1,000 ML IV SCH ×2 (18:00→22:56)
[2018-11-21] MEDS: Enoxaparin Sodium 40 MG/0.4 ML SYRINGE SC SCH (21:39)
[2018-11-21] MEDS ORDERED: diphenhydrAMINE 25 MG CAP PO PRN (22:43)
[2018-11-21] MEDS ORDERED: diphenhydrAMINE 50 MG/ML VIAL IVP PRN (22:44)
[2018-11-22 04:37] LABS: #Eosinphils 0.1 thou/uL (0.0-0.7); #Lymphocytes 0.7 thou/uL (1.20-3.40); #Monocytes 0.5 thou/uL (0.11-0.59); #Neutrophils 5.7 thou/uL (1.40-6.50); %Basophils 0.4 % (0.0-1.0); %Eosinophils 0.8 % (0.0-10.0); %Lymphocytes 9.8 % (21.0-51.0); Hemoglobin 11.6 g/dL (14.0-18.0); Mean Corpuscular HGB CONC 34.5 g/dL (32.0-36.0); Mean Corpuscular Hemoglobin 29.9 pg (27.0-31.0); Mean Corpuscular Volume 86.9 fL (78.0-98.0); Mean Platelet Volume 6.4 fL (7.4-10.4); Platelet Count 380 thou/uL (130-400); RBC Distribution Width 13.1 % (11.5-14.5); Red Blood Cell (RBC) Count 3.89 mill/uL (4.70-6.10)
[2018-11-22 05:04] LABS: Anion Gap 11 mmol/L (10-20); BUN (Urea Nitrogen) 18 mg/dL (8.9-20.6); Calc. Creatinine Clearance 145 mL/min (70-130); Calcium 8.5 mg/dL (7.8-10.44); Carbon Dioxide 21 mmol/L (22-29); Chloride 102 mmol/L (98-107); Estimated GFR-MDRD Greater than 90; Glucose 101 mg/dL (70-105); Phosphorus 2.8 mg/dL (2.3-4.7); Potassium 3.8 mmol/L (3.5-5.1); Sodium 130 mmol/L (136-145)
[2018-11-22] MEDS: Tamsulosin HCl 0.4 MG CAP PO SCH (08:11)
[2018-11-22] MEDS: Famotidine 20 MG TAB PO SCH ×2 (08:11→20:18)
[2018-11-22] MEDS: Sodium Chloride 0.9% 1,000 ML IV SCH ×3 (08:11→23:40)
--- NOTE | 2018-11-22 12:45 | PDOC.GSPN ---
Surgery Progress Note: Subj - Subjective Narrative: He feels much better today. He has been doing clears without bloating and the pain in his epigastric area is gone. He is ambulating well and voiding regularly. Surgery Progress Note: Obj - Vital signs Vital signs: Vital Signs - Most Recent Temp Pulse Resp BP Pulse Ox 98.2 F 98 16 115/76 100 11/22/18 11:04 11/22/18 11:04 11/22/18 11:04 11/22/18 11:04 11/22/18 11:04 - Physical Exam General: no distress Cardiovascular: regular rate and rhythm Respiratory: clear to auscultation Abdomen: soft, non tender, nondistended, positive bowel sounds Wound: healing well, ostomy/colostomy (mucosa pink, stool and air in bag) Surgery Progress Note: Results - Labs Result Diagrams: 11/22/18 04:23 11/22/18 04:23 Lab results: Laboratory Results - last 24 hr 11/22/18 11/22/18 04:23 04:23 WBC 7.0 RBC 3.89 L Hgb 11.6 L Hct 33.8 L MCV 86.9 MCH 29.9 MCHC 34.5 RDW 13.1 Plt Count 380 MPV 6.4 L Neutrophils % 82.0 H Lymphocytes % 9.8 L Monocytes % 7.0 Eosinophils % 0.8 Basophils % 0.4 Neutrophils # 5.7 Lymphocytes # 0.7 L Monocytes # 0.5 Eosinophils # 0.1 Basophils # 0.0 Sodium 130 L Potassium 3.8 Chloride 102 Carbon Dioxide 21 L Anion Gap 11 BUN 18 Creatinine 0.71 Estimated GFR (MDRD) Greater than 90 Glucose 101 Calcium 8.5 Phosphorus 2.8 Magnesium 2.0 - Radiology Interpretation CT scan - abdomen Additional comments: shows no abscess. There is dilation of small intestine all the way to ileostomy. There is no obvious twist of the intestine as it passes through the abdominal wall Surgery Progress Note: A/P - Problem (1) Rectal cancer Current Visit: Yes Code(s): C20 - MALIGNANT NEOPLASM OF RECTUM Status: Acute - Plan Plan: Persistent swelling at ostomy site. CT shows no twist of the mesentery -Had him on the schedule today for revision ostomy, however he says this is the best he's felt since surgery -To OR if not able to advance.
[2018-11-22] MEDS: Enoxaparin Sodium 40 MG/0.4 ML SYRINGE SC SCH (20:18)
[2018-11-23 07:39] VITALS: BP 106/70; TEMP 98
[2018-11-23] MEDS: Sodium Chloride 0.9% 1,000 ML IV SCH ×2 (07:41→08:26)
[2018-11-23] MEDS: Tamsulosin HCl 0.4 MG CAP PO SCH (08:19)
[2018-11-23] MEDS: Famotidine 20 MG TAB PO SCH (08:19)
== END 2018-11-23 10:55 | disposition home or self-care (01) | DRG 330 ==
LOC: SURG A 11-11 05:55 → SJJU 11-11 14:06
PROVIDERS: ADMIT Surgery; ATTEND Surgery
PROC: 0D1B4Z4 Bypass Ileum to Cutaneous, Percutaneous Endoscopic Approach (ICD-10-PCS; principal; 2018-11-11)
PROC: 0DTP4ZZ Resection of Rectum, Percutaneous Endoscopic Approach (ICD-10-PCS; 2018-11-11)
PROC: 8E0W4CZ Robotic Assisted Procedure of Trunk Region, Percutaneous Endoscopic Approach (ICD-10-PCS; 2018-11-11)
DX: C20 Malignant neoplasm of rectum (principal); K56.7 Ileus, unspecified; K64.9 Unspecified hemorrhoids; G43.909 Migraine, unspecified, not intractable, without status migrainosus; Z79.899 Other long term (current) drug therapy; Z90.49 Acquired absence of other specified parts of digestive tract
CPT/HCPCS: 36415; 72192; 74019; 74177; 80048; 80053; 82533; 83036; 83735; 84100; 85025; 85060; 88305; 88309; 88329; J0131; J0670; J0694; J1100; J1200; J1650; J1885; J2185; J2250; J2405; J2550; J2704; J3010; J3490; Q9967; S0028

== ENCOUNTER 2019-01-12 16:05 | Outpatient (CLI) | payer BC ==
[~2019-01-12 16:05] MED LIST: Sodium Chloride 0.9% 15 ML NEB ONE
== END 2019-01-12 16:06 | disposition home or self-care (01) ==
LOC: WCC 16:05
PROVIDERS: ATTEND Family Medicine
DX: C20 Malignant neoplasm of rectum (principal); Z98.890 Other specified postprocedural states
CPT/HCPCS: 99211; A4218; G0463

== ENCOUNTER 2019-02-09 08:11 | Outpatient (CLI) | payer BC ==
--- NOTE | 2019-02-09 11:24 | RAD ---
XR Colostomy Reversal Enema History: Evaluate for stricture Comparison: CT examination October 2018 Findings: Gastrografin contrast was instilled retrograde to the rectum. There is no stricture at the distal anastomosis. Small the diverticulum along the sigmoid colon at the anastomosis. Impression: No stricture or leak at the low anastomosis.
== END 2019-02-09 08:12 | disposition home or self-care (01) ==
LOC: RAD 08:11
PROVIDERS: ATTEND Surgery
DX: C20 Malignant neoplasm of rectum (principal)
CPT/HCPCS: 74280

== ENCOUNTER 2019-03-09 08:00 | Inpatient (IN) | payer BC ==
[2019-03-10] MEDS ORDERED: ceFOXitin 2 GM/50 ML Duplex BAG ONE (06:03)
[2019-03-10] MEDS ORDERED: Fentanyl 100 MCG/2 ML VIAL ONE ×4 (06:18→09:53)
[2019-03-10] MEDS ORDERED: Midazolam HCl 2 mg/2 ml Vial ONE (07:25)
[2019-03-10] MEDS ORDERED: Lidocaine 1% w/Epinephrine 1:100K 20 ML VIAL ONE (07:52)
[2019-03-10] MEDS ORDERED: Bupivacaine 0.25% HCL 30 ML VIAL ONE ×2 (07:52→09:03)
[2019-03-10] MEDS ORDERED: Ondansetron HCl/PF 4 MG/2 ML Vial IVP PRN (08:09)
[2019-03-10] MEDS ORDERED: Promethazine HCl 25 MG/ML VIAL SLOW IVP PRN (08:09)
[2019-03-10] MEDS ORDERED: Promethazine HCl 25 MG/ML VIAL IM PRN ×2 (08:09→11:13)
[2019-03-10] MEDS ORDERED: Ondansetron PF 4 MG/2 ML Vial IVP PRN (11:13)
[2019-03-10] MEDS ORDERED: Fentanyl 100 MCG/2 ML VIAL SLOW IVP PRN ×2 (11:13)
[2019-03-10] MEDS ORDERED: hydrALAZINE 20 MG/ML VIAL SLOW IVP PRN (11:13)
[2019-03-10] MEDS: D5 1/2 NS w/20 mEq KCL 1,000 ML IV SCH (11:55)
[2019-03-10] MEDS: Ketorolac Tromethamine 30 MG/ML VIAL IVP PRN ×2 (12:05→21:57)
--- NOTE | 2019-03-10 13:11 | OP ---
DATE OF PROCEDURE: 03/10/2019 PREOPERATIVE DIAGNOSIS: Rectal cancer with tension ileostomy. POSTOPERATIVE DIAGNOSIS: Rectal cancer with tension ileostomy. PROCEDURE PERFORMED: Ileostomy reversal with small-bowel resection and anastomosis. ANESTHESIA: General. ESTIMATED BLOOD LOSS: 20 mL. COMPLICATIONS: None. DESCRIPTION OF PROCEDURE: The patient was taken to the operating room and laid supine on the operating room table. After general anesthetic was obtained, anal rectal exam was performed showing no significant stenosis at his low anastomosis. The chest area was prepped and draped in a sterile fashion, local anesthetic infiltrated over the previous MediPort site. MediPort incision was reopened and the MediPort was removed. The MediPort site was closed using 3-0 Monocryl, 4-0 Monocryl, and Dermabond. The drapes were then discarded and the abdomen ostomy site was closed shut using a pursestring suture. The abdomen was prepped and draped in a sterile fashion. The ostomy was ellipsed out from the surrounding skin. Dissection was taken down all the way into the abdominal cavity without injury to the loop ileostomy. All posterior wall adhesions are taken down to allow for the ileostomy segment if it brought up into the wound under no tension. A JUNITO 75 was fired across the small intestine proximal and distal to the skin portion of the ostomy. A oqud-ch-fkao anastomosis was performed using JUNITO-75. The common enterotomy was closed using TA60. The corners were oversewn using silk suture. The small bowel segments placed back into the abdominal cavity under no tension. There was no ongoing bleeding. The posterior fascia was closed using PDS, anterior fascia was closed using PDS. Subcutaneous tissues were irrigated and the skin was closed using a pursestring of Prolene. A Opal drain was left in the middle of the wound. Sterile dressings were placed. The patient was sent to Recovery in stable condition. All instrument counts, needle counts, and lap counts were correct. Job ID: [id number]
[2019-03-10] MEDS: cefOXitin Sodium/Dextrose,Iso 2 GM in Premix Bag 1 BAG IVPB SCH ×2 (14:01→21:57)
[2019-03-10] MEDS ORDERED: Rocuronium Bromide 10 MG/ML (10ML VIAL) ONE (14:34)
[2019-03-10] MEDS ORDERED: Ketorolac Tromethamine 30 MG/ML VIAL ONE (14:34)
[2019-03-10] MEDS ORDERED: Lidocaine 1% PF 5 ML VIAL ONE (14:34)
[2019-03-10] MEDS ORDERED: Glycopyrrolate 0.2 MG/ML 5 ML SYRINGE ONE (14:34)
[2019-03-10] MEDS ORDERED: Metoclopramide HCl 10 MG/2 ML VIAL ONE (14:34)
[2019-03-10] MEDS ORDERED: PROPOFOL 200 MG/20 ML VIAL ONE (14:34)
[2019-03-10] MEDS ORDERED: Ondansetron PF 4 MG/2 ML Vial ONE (14:34)
[2019-03-10 16:49] VITALS: BMI 32.4
[2019-03-10] MEDS: traMADol HCl 50 MG TAB PO PRN (19:37)
[2019-03-10] MEDS: Famotidine/PF 20 mg/2ml Vial SLOW IVP SCH (19:57)
[2019-03-10] MEDS: Enoxaparin Sodium 40 MG/0.4 ML SYRINGE SC SCH (20:00)
[2019-03-10] MEDS: Famotidine 20 MG TAB PO SCH (20:00)
[2019-03-11 05:30] LABS: Anion Gap 9 mmol/L (10-20); BUN (Urea Nitrogen) 8 mg/dL (8.9-20.6); Calc. Creatinine Clearance 147 mL/min (70-130); Calcium 8.2 mg/dL (7.8-10.44); Carbon Dioxide 25 mmol/L (22-29); Chloride 104 mmol/L (98-107); Estimated GFR-MDRD Greater than 90; Glucose 100 mg/dL (70-105); Potassium 3.8 mmol/L (3.5-5.1); Sodium 134 mmol/L (136-145)
[2019-03-11 05:34] LABS: Band 9 % (5-11); Hemoglobin 11.6 g/dL (14.0-18.0); Lymphocytes 14 % (21-51); MDiff Complete? YES; Mean Corpuscular HGB CONC 33.6 g/dL (32.0-36.0); Mean Corpuscular Hemoglobin 29.4 pg (27.0-31.0); Mean Corpuscular Volume 87.5 fL (78.0-98.0); Mean Platelet Volume 7.8 fL (7.4-10.4); Monocytes 15 % (0-10); Neutrophil 62 % (42-75); Platelet Count 181 thou/uL (130-400); RBC Distribution Width 16.3 % (11.5-14.5); Red Blood Cell (RBC) Count 3.95 mill/uL (4.70-6.10); White Blood Cell (WBC) Count 3.8 thou/uL (4.8-10.8)
--- NOTE | 2019-03-11 06:37 | PDOC.GSPN ---
Surgery Progress Note: Subj - Subjective Patient reports: pain well controlled, tolerating liquids well Narrative: Mr. Noland is a 48 y/o male with a history of rectal cancer who is POD 1 from ileostomy reversal and mediport removal. He is doing well this morning. He reports soreness in his lower abdomen that he rates 6-7/10, especially around the right lower abdominal incision. He is tolerating clear liquids well (jello, gatorade, water) and has been walking twice without issues. He is voiding on his own and has not passed flatus or bowel movement yet. Patient denies nausea, vomiting, reflux, dizziness, and headache. Surgery Progress Note: Obj - Vital signs Vital signs: Vital Signs - Most Recent Temp Pulse Resp BP Pulse Ox 98.4 F 88 18 118/68 94 L 03/11/19 04:16 03/11/19 04:16 03/11/19 04:16 03/11/19 04:16 03/11/19 04:16 - Physical Exam General: no distress Neck: no lymphadectomy, no masses Cardiovascular: regular rate and rhythm, no murmur, other (Radial pulses 2+ bilaterally and symmetrically.) Respiratory: clear to auscultation, normal expansion, normal respiratory effort , breath sounds present (No rales, rhonchi, or wheezes.) Abdomen: soft, nondistended, appropriately tender, other (No bowel sounds on auscultation.) Integumentary: no rash Psychiatric: oriented to time, oriented to person, oriented to place Wound: dressing clean,dry,intact (Dressing in place over right lower abdominal wound, some drainage seen through the gauze. Incision on right chest wall is well approximated and without erythema, induration, or purulend drainage.), healing well Surgery Progress Note: Results - Labs Result Diagrams: 03/11/19 04:47 03/11/19 04:47 Lab results: Laboratory Results - last 24 hr 03/11/19 03/11/19 04:47 04:47 WBC 3.8 L RBC 3.95 L Hgb 11.6 L Hct 34.5 L MCV 87.5 MCH 29.4 MCHC 33.6 RDW 16.3 H Plt Count 181 MPV 7.8 Neutrophils % (Manual) 62 Band Neuts % (Manual) 9 Lymphocytes % (Manual) 14 L Monocytes % (Manual) 15 H Sodium 134 L Potassium 3.8 Chloride 104 Carbon Dioxide 25 Anion Gap 9 L BUN 8 L Creatinine 0.76 Estimated GFR (MDRD) Greater than 90 Glucose 100 Calcium 8.2 Surgery Progress Note: A/P - Plan Plan: Mr. Noland is a 48 y/o male with a history of rectal cancer who is POD 1 from ileostomy reversal and mediport removal. -Continue clear liquids today. May advance to full liquids later today or tomorrow as tolerated. -Continue to monitor pain -Monitor for flatus and bowel movements -Wound care -Continue to encourage ambulation and walking Addendum - Physician - Physician Attestation Date/Time: 03/11/19 [id number] I personally performed or re-performed the physical examination and medical decision making. I have verified all student documentation or findings, including history, physical exam and/or medical decision making. Full liquids. Home tomorrow if doing well
[2019-03-11] MEDS: D5 1/2 NS w/20 mEq KCL 1,000 ML IV SCH (09:23)
[2019-03-11] MEDS: Famotidine 20 MG TAB PO SCH ×2 (09:23→21:22)
[2019-03-11] MEDS: traMADol HCl 50 MG TAB PO PRN (09:26)
[2019-03-11] MEDS: Famotidine/PF 20 mg/2ml Vial SLOW IVP SCH ×2 (09:27→21:21)
[2019-03-11] MEDS ORDERED: traMADol HCl 50 MG TAB PO PRN (12:04)
[2019-03-11] MEDS ORDERED: FLU VACC QS2019-20(6MOS UP)/PF 60 MCG/0.5 ML SYRINGE IM ONE (12:45)
[2019-03-11] MEDS: Enoxaparin Sodium 40 MG/0.4 ML SYRINGE SC SCH (21:22)
[2019-03-12 04:20] VITALS: TEMP 98.1
[2019-03-12] MEDS: Famotidine/PF 20 mg/2ml Vial SLOW IVP SCH (07:50)
[2019-03-12] MEDS: Famotidine 20 MG TAB PO SCH (07:50)
[2019-03-12 07:52] VITALS: BP 126/74
--- NOTE | 2019-03-12 10:37 | DIS ---
DATE OF ADMISSION: 03/10/2019 DATE OF DISCHARGE: 03/12/2019 ADMIT DIAGNOSES: 1. Attention to ileostomy. 2. History of rectal cancer. CONDITION ON DISCHARGE: Improved. HOSPITAL COURSE: On postop day 2, the patient is doing well. He is tolerating the clear liquids. He will follow up with me in 10 days for suture removal. Prescriptions for tramadol and Zofran sent to [facility] on [address]. He is going to do soup type diet for a few days and then casserole type diet. He is going to stop taking the Lomotil he was on as an outpatient. He will call me if he has any issues after discharge. Job ID: [id number]
--- NOTE | 2019-03-15 05:22 | PQF ---
[employer] Adjunct In[employer] CHERIE LAMBERT MD [id number] SURG A- [id number] CLINICAL DOCUMENTATION CLARIFICATION FORM: POST DISCHARGE Addendum to original discharge summary date: ____ Late entry note date: __ DATE: 03/15/2019 ATTN:CHERIE LAMBERT MD Please exercise your independent, professional judgment in responding to the clarification form. Clinical indicators are provided on the bottom of this form for your review Please check appropriate box(s): Kindly Clarify whether rectal cancer was active condition or Not [ ] Active Rectal cancer [ X] H/O Rectal cancer [ ] Other diagnosis [ ] Unable to determine In addition, please specify: Present on Admission (POA): [ ] Yes [ ] No [ ] Unable to determine For continuity of documentation, please document condition throughout progress notes and discharge summary. Thank You. CLINICAL INDICATORS - SIGNS / SYMPTOMS / LABS h/o rectal cancer - Documented in DS on 03/12 by CHERIE LAMBERT MD Rectal cancer with tension ileostomy - Documented in Operative report Mediport was removed - Documented in Operative report RISK FACTORS ileostomy dysfunction - Documented in Physician office H&P TREATMENTS: Ileostomy reversal with small bowel resection and anastomosis - Documented in Operative report (This form is maintained as a part of the permanent medical record) 2014 [employer] All Rights Reserved [email or web address] [not provided] [place]
== END 2019-03-12 11:24 | disposition home or self-care (01) | DRG 331 ==
LOC: SURG A 03-10 05:59
PROVIDERS: ADMIT Surgery; ATTEND Surgery
PROC: 0DBB0ZZ Excision of Ileum, Open Approach (ICD-10-PCS; principal; 2019-03-10)
PROC: 0JPT0WZ Removal of Totally Implantable Vascular Access Device from Trunk Subcutaneous Tissue and Fascia, Open Approach (ICD-10-PCS; 2019-03-10)
DX: Z43.2 Encounter for attention to ileostomy (principal); F41.9 Anxiety disorder, unspecified; Z85.048 Personal history of other malignant neoplasm of rectum, rectosigmoid junction, and anus
CPT/HCPCS: 36415; 80048; 85025; 88307; J0694; J1650; J1885; J2001; J2250; J2405; J2704; J2765; J3010; S0020